=== PATIENT | female | born 1990 | race Asian ===

== ENCOUNTER 2017-12-31 11:12 | Emergency (ER) | payer BC ==
[2017-12-31] MEDS: SILVER SULFADIAZINE 1% 25 GM CR TOP (12:27)
== END 2017-12-31 12:40 | disposition home or self-care (01) ==
LOC: E/R 11:12
DX: T23.102A Burn of first degree of left hand, unspecified site, initial encounter (principal); T23.132A Burn of first degree of multiple left fingers (nail), not including thumb, initial encounter; X12.XXXA Contact with other hot fluids, initial encounter; Y92.511 Restaurant or cafe as the place of occurrence of the external cause
CPT/HCPCS: 16000; 99283-25